=== PATIENT | female | born 1955 | race Caucasian/White ===

== ENCOUNTER 2023-11-14 11:06 | Inpatient (IN) | payer SELFPAY ==
[2023-11-14 12:39] LABS: INR 1.17 (0.83-1.09); PROTHROMBIN TIME (PATIENT) 13.5 SEC (9.7-13.0)
[2023-11-14 12:42] LABS: ACTIVATED PTT 28.6 SECONDS (25.2-36.5)
[2023-11-14 12:54] LABS: POTASSIUM 4.6 mmol/L (3.5-5.1)
[2023-11-14 12:55] LABS: CALCIUM 8.7 mg/dL (8.5-10.1)
[2023-11-14 12:56] LABS: ALBUMIN 3.3 g/dl (3.4-5.0)
[2023-11-14 12:58] LABS: BLOOD UREA NITROGEN 58.9 mg/dL (7-18)
[2023-11-14 12:59] LABS: CREATININE 2.4 mg/dL (0.55-1.3)
[2023-11-14 13:01] LABS: TOT PROT 6.6 g/dl (6.4-8.2)
[2023-11-14 13:05] LABS: BASO % 0.3 % (0-2.0); EOS % 1.3 % (0-4.5); HEMATOCRIT 34.9 % (32.4-45.2); HEMOGLOBIN 12.4 GM/dL (10.7-15.3); LYMPH % 17.8 % (8-40); MCH 31.7 pg (25.7-33.7); MCHC 35.7 g/dl (32.0-36.0); MEAN CELL VOLUME 88.9 fl (80-96); MEAN PLT VOLUME 9.2 fl (7.5-11.1); MONO % 7.7 % (3.8-10.2); NEUT % 72.9 % (42.8-82.8); PLATELET COUNT 306 10^3/uL (134-434); RBC 3.92 M/mm3 (3.60-5.2); RDW 13.4 % (11.6-15.6); WHITE BLOOD COUNT 11.9 K/mm3 (4.0-10.0)
[2023-11-14] MEDS: LACTATED RINGERS SOLUTION 1000 ML INFUS.BAG IV ONE ×2 (13:05→14:30)
[2023-11-14] MEDS ORDERED: ACETAMINOPHEN INJECTION 100 ML IVPB ONE (13:14)
[2023-11-14] MEDS: ACETAMINOPHEN 1000 MG/100 ML BAG IVPB ONE (13:20)
[2023-11-14] MEDS ORDERED: morphine SULFATE 4 MG/ML VIAL ONE (15:10)
[2023-11-14 15:20] LABS: VENOUS BASE EXCESS 0.8 mmol/L (-2-2); VENOUS O2 SATURATION 34.9 % (70-80); VENOUS PCO2 43.6 mmHg (38-52); VENOUS PH 7.393 (7.310-7.410)
[2023-11-14] MEDS: morphine CARPU-JECT 4 MG/1 ML DISP.SYRIN IVPUSH ONE (15:20)
[2023-11-14 15:57] LABS: URINE APPEARANCE CLEAR; URINE BILIRUBIN NEGATIVE (NEGATIVE); URINE COLOR YELLOW; URINE GLUCOSE (UA) 3+ (NEGATIVE); URINE KETONE NEGATIVE (NEGATIVE); URINE LEUK ESTERASE NEGATIVE (NEGATIVE); URINE NITRITE NEGATIVE (NEGATIVE); URINE PROTEIN NEGATIVE (NEGATIVE); URINE UROBILINOGEN 0.2 mg/dL (0.2-1.0)
[2023-11-14] MEDS ORDERED: INSULIN (NOVOLOG) ASPART 100 UNITS/ML 10ML VIAL ONE (17:18)
[2023-11-14] MEDS: INSULIN ASPART SLIDING SCALE (NOVOLOG) 1 VIAL SQ SCH (17:19)
[2023-11-14] MEDS: INSULIN (LEVEMIR) 100 UNITS/ML UNITS SQ SCH (17:19)
[2023-11-14 17:38] VITALS: BMI 28.4
[2023-11-14] MEDS: ACETAMINOPHEN 500 MG TABLET (FP) PO PRN (22:07)
[2023-11-14] MEDS: HEPARIN NA (PORCINE) 5,000 UNITS/ML 1ML VIAL SQ SCH (22:08)
[2023-11-14] MEDS: ATORVASTATIN CA 40 MG TABLET (FP) PO SCH (22:08)
[2023-11-14] MEDS: LACTATED RINGERS SOLUTION 1,000 ML/1,000 ML INFUS.BAG IV SCH (22:09)
[2023-11-15] MEDS: ACETAMINOPHEN 1000 MG/100 ML BAG IVPB ONE (00:38)
[2023-11-15] MEDS: HYDROmorphone HCL 2 MG TABLET PO ONE (03:22)
[2023-11-15 07:27] LABS: BASO % 0.3 % (0-2.0); EOS % 2.6 % (0-4.5); HEMATOCRIT 34.5 % (32.4-45.2); LYMPH % 29.4 % (8-40); MCH 31.2 pg (25.7-33.7); MCHC 34.8 g/dl (32.0-36.0); MEAN CELL VOLUME 89.7 fl (80-96); MONO % 5.6 % (3.8-10.2); NEUT % 62.1 % (42.8-82.8); PLATELET COUNT 287 10^3/uL (134-434); RBC 3.84 M/mm3 (3.60-5.2); RDW 13.1 % (11.6-15.6)
[2023-11-15 07:43] LABS: POTASSIUM 4.2 mmol/L (3.5-5.1)
[2023-11-15 07:45] LABS: CALCIUM 8.6 mg/dL (8.5-10.1)
[2023-11-15 07:49] LABS: CREATININE 1.5 mg/dL (0.55-1.3)
[2023-11-15 07:58] LABS: BLOOD UREA NITROGEN 32.2 mg/dL (7-18)
[2023-11-15] MEDS: traMADol HCL 50 MG TABLET PO ONE (08:06)
[2023-11-15] MEDS: ASPIRIN COATED 81 MG TABLET.EC PO SCH (09:08)
[2023-11-15] MEDS: amLODIPine BESYLATE 5 MG TABLET (FP) PO SCH (09:08)
[2023-11-15] MEDS: PNEUMOC 20-VAL CONJ-DIP CRM/PF 0.5 ML SYRINGE IM ONE (10:10)
[2023-11-15] MEDS: FLU VACCINE (FLULAVAL) PF 60 MCG/0.5 ML SYRINGE 2023-2024 IM ONE (10:11)
[2023-11-15] MEDS: GABAPENTIN 300 MG CAPSULE PO ONE (12:15)
[2023-11-15] MEDS: ACETAMINOPHEN 1000 MG/100 ML BAG IVPB SCH (12:15)
[2023-11-15] MEDS: ACETAMINOPHEN 500 MG TABLET (FP) PO SCH (18:40)
[2023-11-16 07:03] LABS: HEMATOCRIT 33.9 % (32.4-45.2); MCH 31.8 pg (25.7-33.7); MCHC 35.5 g/dl (32.0-36.0); MEAN CELL VOLUME 89.4 fl (80-96); MEAN PLT VOLUME 9.2 fl (7.5-11.1); PLATELET COUNT 296 10^3/uL (134-434); RBC 3.78 M/mm3 (3.60-5.2); WHITE BLOOD COUNT 9.6 K/mm3 (4.0-10.0)
[2023-11-16 07:15] LABS: POTASSIUM 4.2 mmol/L (3.5-5.1)
[2023-11-16 07:24] LABS: ALBUMIN 2.9 g/dl (3.4-5.0); CALCIUM 9.1 mg/dL (8.5-10.1)
[2023-11-16 07:25] LABS: BLOOD UREA NITROGEN 22.4 mg/dL (7-18)
[2023-11-16 07:27] LABS: CREATININE 1.3 mg/dL (0.55-1.3)
[2023-11-16 07:29] LABS: BILIRUBIN,TOTAL 1.2 mg/dL (0.2-1); TOT PROT 5.8 g/dl (6.4-8.2)
[2023-11-16] MEDS: GABAPENTIN 300 MG CAPSULE PO SCH (11:35)
[2023-11-16] MEDS: MAGNESIUM HYDROX 2400MG/30ML ORAL SUSPENSION 30 ML CUP PO ONE (11:57)
[2023-11-16] MEDS: GLYCERIN 1 RECTAL SUPPOSITORY, ADULT RC ONE (15:34)
[2023-11-16] MEDS ORDERED: INSULIN (NOVOLOG) ASPART 100 UNITS/ML 10ML VIAL ONE (21:07)
[2023-11-16] MEDS: INSULIN (LEVEMIR) 100 UNITS/ML UNITS SQ SCH (22:04)
[2023-11-17 06:32] LABS: HEMATOCRIT 35.9 % (32.4-45.2); HEMOGLOBIN 12.4 GM/dL (10.7-15.3); MCH 31.1 pg (25.7-33.7); MCHC 34.6 g/dl (32.0-36.0); MEAN PLT VOLUME 8.8 fl (7.5-11.1); PLATELET COUNT 297 10^3/uL (134-434); RBC 3.98 M/mm3 (3.60-5.2); RDW 13.1 % (11.6-15.6); WHITE BLOOD COUNT 11.1 K/mm3 (4.0-10.0)
[2023-11-17 07:07] LABS: POTASSIUM 4.3 mmol/L (3.5-5.1)
[2023-11-17 07:14] LABS: ALBUMIN 2.9 g/dl (3.4-5.0); CALCIUM 9.1 mg/dL (8.5-10.1)
[2023-11-17 07:15] LABS: BLOOD UREA NITROGEN 23.1 mg/dL (7-18)
[2023-11-17 07:18] LABS: CREATININE 1.3 mg/dL (0.55-1.3)
[2023-11-17 07:19] LABS: BILIRUBIN,TOTAL 0.6 mg/dL (0.2-1)
[2023-11-17] MEDS: CELECOXIB 200 MG CAPSULE PO ONE (12:25)
[2023-11-18] MEDS: GABAPENTIN 300 MG CAPSULE PO ONE (00:50)
[2023-11-18] MEDS: ACETAMINOPHEN 325 MG TABLET (FP) PO ONE (02:04)
[2023-11-18] MEDS: CELECOXIB 200 MG CAPSULE PO ONE (10:46)
[2023-11-18 16:46] VITALS: BP 118/54; PULSE 77; RESP 19; TEMP 97.5
== END 2023-11-18 14:16 | disposition home or self-care (01) | DRG 347 ==
LOC: JER 11:06 → OBSVTOIN 14:04 → JERBED 14:04 → J4W 17:13
PROVIDERS: ADMIT Internal Medicine; ATTEND Internal Medicine
DX: M54.16 Radiculopathy, lumbar region (principal); I12.9 Hypertensive chronic kidney disease with stage 1 through stage 4 chronic kidney disease, or unspecified chronic kidney disease; E11.22 Type 2 diabetes mellitus with diabetic chronic kidney disease; N18.9 Chronic kidney disease, unspecified; E11.65 Type 2 diabetes mellitus with hyperglycemia; R26.2 Difficulty in walking, not elsewhere classified; R29.818 Other symptoms and signs involving the nervous system
CPT/HCPCS: 0241U-QW; 36415; 70450-TC; 70496-TC; 70498-TC; 70551-TC; 71045-TC-FY; 72131-TC; 72170-TC-FY; 73521-TC-FY; 76775-TC; 80048; 80053; 80061; 81003; 82550; 82553; 82803; 82962; 83036; 84484; 85025; 85027; 85610; 85730; 86850; 86900; 86901; 90677; 90686; 93005; 93010; 93306-TC; 93880-TC; 97116-GP; 97162-GP; 99285-25; G0008; J0131; J1644

== ENCOUNTER 2024-01-19 08:48 | Observation (INO) | payer OTHER ==
[2024-01-19 12:02] LABS: PH,URINE 5.5 (5.0-8.0); URINE APPEARANCE CLEAR; URINE BILIRUBIN NEGATIVE (NEGATIVE); URINE COLOR YELLOW; URINE GLUCOSE (UA) 3+ (NEGATIVE); URINE KETONE NEGATIVE (NEGATIVE); URINE LEUK ESTERASE NEGATIVE (NEGATIVE); URINE NITRITE NEGATIVE (NEGATIVE); URINE PROTEIN NEGATIVE (NEGATIVE); URINE UROBILINOGEN 0.2 mg/dL (0.2-1.0); VENOUS BASE EXCESS -2.7 mmol/L (-2-2); VENOUS O2 SATURATION 58.2 % (70-80); VENOUS PCO2 38.7 mmHg (38-52); VENOUS PH 7.374 (7.310-7.410)
[2024-01-19 12:03] LABS: BASO % 0.2 % (0-2.0); EOS % 0.3 % (0-4.5); HEMATOCRIT 38.7 % (32.4-45.2); HEMOGLOBIN 12.9 GM/dL (10.7-15.3); LYMPH % 14.9 % (8-40); MCH 30.6 pg (25.7-33.7); MCHC 33.4 g/dl (32.0-36.0); MEAN CELL VOLUME 91.5 fl (80-96); MEAN PLT VOLUME 8.4 fl (7.5-11.1); NEUT % 80.6 % (42.8-82.8); PLATELET COUNT 381 10^3/uL (134-434); RBC 4.23 M/mm3 (3.60-5.2); RDW 13.2 % (11.6-15.6)
[2024-01-19 12:19] LABS: PROTHROMBIN TIME (PATIENT) 11.6 SEC (9.7-13.0)
[2024-01-19 13:02] LABS: POTASSIUM 5.6 mmol/L (3.5-5.1)
[2024-01-19 13:04] LABS: CALCIUM 9.5 mg/dL (8.5-10.1)
[2024-01-19 13:05] LABS: ALBUMIN 3.4 g/dl (3.4-5.0); BLOOD UREA NITROGEN 33.6 mg/dL (7-18)
[2024-01-19 13:09] LABS: TOT PROT 6.8 g/dl (6.4-8.2)
[2024-01-19 13:10] LABS: BILIRUBIN,TOTAL 0.5 mg/dL (0.2-1)
[2024-01-19 13:14] LABS: CREATININE 1.4 mg/dL (0.55-1.3)
[2024-01-19] MEDS ORDERED: SODIUM ZIRCONIUM CYCLOSILICATE (LOKELMA) 10 GM PACKET ONE (14:17)
[2024-01-19] MEDS: SODIUM CHLORIDE 500 ML IV STA (14:29)
[2024-01-19] MEDS: SODIUM ZIRCONIUM CYCLOSILICATE (LOKELMA) 5 GM PACKET PO ONE (14:34)
[2024-01-19] MEDS: amLODIPine BESYLATE 10 MG TABLET (FP) PO SCH (20:24)
[2024-01-19] MEDS ORDERED: INSULIN (NOVOLOG) ASPART 100 UNITS/ML 10ML VIAL ONE (21:17)
[2024-01-19] MEDS: INSULIN ASPART SLIDING SCALE (NOVOLOG) 1 VIAL SQ SCH (21:39)
[2024-01-19] MEDS: ATORVASTATIN CA 40 MG TABLET (FP) PO SCH (21:39)
[2024-01-19] MEDS: INSULIN (LEVEMIR) 100 UNITS/ML UNITS SQ SCH (21:40)
[2024-01-19] MEDS: HEPARIN NA (PORCINE) 5,000 UNITS/ML 1ML VIAL SQ SCH (21:40)
[2024-01-20] MEDS: DEXTROSE 50%-WATER 25 GM/50 ML DISP.SYRIN IVPUSH ONE (06:10)
[2024-01-20 06:21] VITALS: BMI 25.8
[2024-01-20 10:01] LABS: BLOOD UREA NITROGEN 27.8 mg/dL (7-18); CALCIUM 8.9 mg/dL (8.5-10.1)
[2024-01-20 10:03] LABS: CREATININE 1.3 mg/dL (0.55-1.3)
[2024-01-20] MEDS: ASPIRIN COATED 81 MG TABLET.EC PO SCH (10:50)
[2024-01-20] MEDS: CHLORTHALIDONE 25 MG TABLET PO SCH (10:54)
[2024-01-20] MEDS ORDERED: SODIUM ZIRCONIUM CYCLOSILICATE (LOKELMA) 5 GM PACKET PO ONE (14:03)
[2024-01-20] MEDS ORDERED: DEXTROSE 50%-WATER 25 GM/50 ML DISP.SYRIN IVPUSH PRN (19:54)
[2024-01-20] MEDS ORDERED: INSULIN (NOVOLOG) ASPART 100 UNITS/ML 10ML VIAL ONE (21:45)
[2024-01-21] MEDS: INSULIN (LEVEMIR) 100 UNITS/ML UNITS SQ SCH (06:27)
[2024-01-21 08:18] LABS: HEMATOCRIT 33.4 % (32.4-45.2); HEMOGLOBIN 11.6 GM/dL (10.7-15.3); MCH 31.3 pg (25.7-33.7); MCHC 34.7 g/dl (32.0-36.0); MEAN CELL VOLUME 90.4 fl (80-96); MEAN PLT VOLUME 8.6 fl (7.5-11.1); PLATELET COUNT 344 10^3/uL (134-434); RDW 13.3 % (11.6-15.6); WHITE BLOOD COUNT 10.7 K/mm3 (4.0-10.0)
[2024-01-21 08:27] LABS: POTASSIUM 4.9 mmol/L (3.5-5.1)
[2024-01-21 08:36] LABS: CALCIUM 9.3 mg/dL (8.5-10.1)
[2024-01-21 08:40] LABS: CREATININE 1.4 mg/dL (0.55-1.3)
[2024-01-21 08:41] LABS: BILIRUBIN,TOTAL 0.5 mg/dL (0.2-1)
[2024-01-21] MEDS: VANCOMYCIN/WATER FOR INJ (PEG) 1,000 MG/200 ML BAG IVPB ONE (16:11)
[2024-01-22] MEDS ORDERED: INSULIN (NOVOLOG) ASPART 100 UNITS/ML 10ML VIAL ONE (21:18)
[2024-01-24 08:36] LABS: BASO % 0.5 % (0-2.0); EOS % 3.7 % (0-4.5); HEMATOCRIT 37.9 % (32.4-45.2); HEMOGLOBIN 13.2 GM/dL (10.7-15.3); LYMPH % 34.6 % (8-40); MCH 31.4 pg (25.7-33.7); MCHC 34.8 g/dl (32.0-36.0); MEAN CELL VOLUME 90.2 fl (80-96); MEAN PLT VOLUME 8.5 fl (7.5-11.1); MONO % 7.4 % (3.8-10.2); NEUT % 53.8 % (42.8-82.8); PLATELET COUNT 429 10^3/uL (134-434); RDW 13.4 % (11.6-15.6); WHITE BLOOD COUNT 9.2 K/mm3 (4.0-10.0)
[2024-01-24 08:53] LABS: POTASSIUM 4.9 mmol/L (3.5-5.1)
[2024-01-24 08:55] LABS: ALBUMIN 3.5 g/dl (3.4-5.0); BLOOD UREA NITROGEN 44.7 mg/dL (7-18); CALCIUM 9.8 mg/dL (8.5-10.1)
[2024-01-24 08:58] LABS: CREATININE 1.5 mg/dL (0.55-1.3)
[2024-01-24 09:00] LABS: BILIRUBIN,TOTAL 0.5 mg/dL (0.2-1); TOT PROT 7.2 g/dl (6.4-8.2)
[2024-01-24] MEDS ORDERED: INSULIN (NOVOLOG) ASPART 100 UNITS/ML 10ML VIAL ONE (22:10)
[2024-01-25 11:45] VITALS: PULSE 84; RESP 20
[2024-01-25 14:24] VITALS: BP 138/58; TEMP 98.4
== END 2024-01-25 16:21 | disposition home or self-care (01) ==
LOC: JER 08:48 → JERBED 16:52 → J7W 18:53
PROVIDERS: ADMIT Internal Medicine; ATTEND Nurse Practitioner
PROC: 3E023GC Introduction of Other Therapeutic Substance into Muscle, Percutaneous Approach (ICD-10-PCS; principal; 2024-01-19)
PROC: 3E013VG Introduction of Insulin into Subcutaneous Tissue, Percutaneous Approach (ICD-10-PCS; 2024-01-19)
PROC: 3E0337Z Introduction of Electrolytic and Water Balance Substance into Peripheral Vein, Percutaneous Approach (ICD-10-PCS; 2024-01-19)
PROC: 3E03329 Introduction of Other Anti-infective into Peripheral Vein, Percutaneous Approach (ICD-10-PCS; 2024-01-19)
DX: E11.649 Type 2 diabetes mellitus with hypoglycemia without coma (principal); E86.0 Dehydration; E87.5 Hyperkalemia; H53.2 Diplopia; R29.818 Other symptoms and signs involving the nervous system; I10 Essential (primary) hypertension; Z86.73 Personal history of transient ischemic attack (TIA), and cerebral infarction without residual deficits
CPT/HCPCS: 0241U-QW; 36415; 70450-TC; 70551-TC; 71045-TC-FY; 80048; 80053; 81003; 82550; 82803; 82962; 83605; 84484; 85025; 85027; 85610; 85730; 86850; 86900; 86901; 87040; 87086; 93005; 93010; 99285-25; G0378; J1644

== ENCOUNTER 2024-07-24 03:13 | Inpatient (IN) | payer SELFPAY ==
[2024-07-24 03:20] VITALS: BMI 28.5
[2024-07-24] MEDS ORDERED: ACETAMINOPHEN INJECTION 100 ML ONE (03:49)
[2024-07-24] MEDS: ACETAMINOPHEN 1000 MG/100 ML BAG IVPB ONE (04:05)
[2024-07-24 04:27] LABS: POTASSIUM 4.7 mmol/L (3.5-5.1)
[2024-07-24] MEDS ORDERED: ASPIRIN 81 MG CHEWABLE TABLETS ONE (04:27)
[2024-07-24 04:29] LABS: ALBUMIN 3.8 g/dl (3.4-5.0); BLOOD UREA NITROGEN 21.3 mg/dL (7-18); CALCIUM 8.5 mg/dL (8.5-10.1)
[2024-07-24 04:32] LABS: CREATININE 1.4 mg/dL (0.55-1.3)
[2024-07-24] MEDS: ASPIRIN 81 MG CHEWABLE TABLETS PO ONE (04:32)
[2024-07-24 04:34] LABS: BILIRUBIN,TOTAL 1.1 mg/dL (0.2-1)
[2024-07-24 04:52] LABS: INR 0.96 (0.83-1.09); PROTHROMBIN TIME (PATIENT) 11.1 SEC (9.7-13.0)
[2024-07-24 04:55] LABS: ACTIVATED PTT 35.5 SECONDS (25.2-36.5)
[2024-07-24 05:40] LABS: BASO % 0.5 % (0-2.0); EOS % 3.4 % (0-4.5); HEMATOCRIT 37.6 % (32.4-45.2); HEMOGLOBIN 12.7 GM/dL (10.7-15.3); LYMPH % 30.3 % (8-40); MCH 30.8 pg (25.7-33.7); MCHC 33.9 g/dl (32.0-36.0); MEAN CELL VOLUME 90.7 fl (80-96); MONO % 7.3 % (3.8-10.2); NEUT % 58.5 % (42.8-82.8); PLATELET COUNT 292 10^3/uL (134-434); RBC 4.14 M/mm3 (3.60-5.2); RDW 14.8 % (11.6-15.6); WHITE BLOOD COUNT 10.5 K/mm3 (4.0-10.0)
[2024-07-24] MEDS ORDERED: FUROSEMIDE 40 MG/4 ML INJECTABLE VIAL ONE (05:48)
[2024-07-24] MEDS: FUROSEMIDE 40 MG/4 ML INJECTABLE VIAL IVPUSH ONE (05:56)
[2024-07-24] MEDS ORDERED: HEPARIN NA (PORCINE) 5,000 UNITS/ML 1ML VIAL ONE (06:55)
[2024-07-24] MEDS ORDERED: INSULIN ASPART SLIDING SCALE (NOVOLOG) 1 VIAL SQ SCH (07:00)
[2024-07-24] MEDS: HEPARIN NA (PORCINE) 5,000 UNITS/ML 1ML VIAL SQ SCH (07:01)
[2024-07-24] MEDS: INSULIN ASPART SLIDING SCALE (NOVOLOG) 1 VIAL SQ SCH (07:36)
[2024-07-24] MEDS: FUROSEMIDE 40 MG/4 ML INJECTABLE VIAL IVPUSH SCH (09:39)
[2024-07-24] MEDS: VALSARTAN 160 MG TABLET PO SCH (09:39)
[2024-07-24] MEDS: ASPIRIN COATED 81 MG TABLET.EC PO SCH (09:40)
[2024-07-24] MEDS: CHLORTHALIDONE 25 MG TABLET PO SCH (09:40)
[2024-07-24] MEDS: CLOPIDOGREL BISULFATE 75 MG TABLET (FP) PO SCH (09:40)
[2024-07-24] MEDS: INSULIN (LEVEMIR) 100 UNITS/ML UNITS SQ SCH (09:42)
[2024-07-24] MEDS ORDERED: INSULIN (LEVEMIR) 100 UNITS/ML UNITS SQ SCH (10:00)
[2024-07-24 14:16] LABS: HIV INTERPRETATION NEGATIVE (NEGATIVE)
[2024-07-24 20:36] VITALS: RESP 18; TEMP 98.1
[2024-07-25 06:18] VITALS: BP 145/65; PULSE 68
[2024-07-25 07:57] LABS: BASO % 0.7 % (0-2.0); EOS % 2.9 % (0-4.5); HEMATOCRIT 35.6 % (32.4-45.2); HEMOGLOBIN 12.2 GM/dL (10.7-15.3); MCH 30.7 pg (25.7-33.7); MCHC 34.4 g/dl (32.0-36.0); MEAN CELL VOLUME 89.4 fl (80-96); MEAN PLT VOLUME 8.4 fl (7.5-11.1); MONO % 5.8 % (3.8-10.2); NEUT % 57.6 % (42.8-82.8); PLATELET COUNT 298 10^3/uL (134-434); RBC 3.98 M/mm3 (3.60-5.2); RDW 14.6 % (11.6-15.6); WHITE BLOOD COUNT 9.3 K/mm3 (4.0-10.0)
[2024-07-25 08:04] LABS: POTASSIUM 4.3 mmol/L (3.5-5.1)
[2024-07-25 08:07] LABS: ALBUMIN 3.6 g/dl (3.4-5.0)
[2024-07-25 08:08] LABS: BLOOD UREA NITROGEN 27.7 mg/dL (7-18); CALCIUM 8.9 mg/dL (8.5-10.1)
[2024-07-25 08:10] LABS: BILIRUBIN,DIRECT 0.3 mg/dL (0.0-0.2)
[2024-07-25 08:11] LABS: CREATININE 1.6 mg/dL (0.55-1.3)
[2024-07-25 08:12] LABS: BILIRUBIN,TOTAL 1.1 mg/dL (0.2-1); TOT PROT 6.5 g/dl (6.4-8.2)
[2024-07-25] MEDS: amLODIPine BESYLATE 5 MG TABLET (FP) PO SCH (11:47)
[2024-07-25] MEDS: LABETALOL HCL 200 MG TABLET (FP) PO SCH (11:47)
[2024-07-25] MEDS ORDERED: ATORVASTATIN CA 40 MG TABLET (FP) PO SCH (22:00)
[2024-07-26] MEDS ORDERED: FUROSEMIDE 40 MG/4 ML INJECTABLE VIAL IVPUSH SCH (10:00)
== END 2024-07-25 15:52 | disposition home or self-care (01) | DRG 194 ==
LOC: JER 03:13 → JERBED 06:02 → J4W 08:15
PROVIDERS: ADMIT Internal Medicine; ATTEND Internal Medicine
DX: I13.0 Hypertensive heart and chronic kidney disease with heart failure and stage 1 through stage 4 chronic kidney disease, or unspecified chronic kidney disease (principal); I50.33 Acute on chronic diastolic (congestive) heart failure; E11.42 Type 2 diabetes mellitus with diabetic polyneuropathy; E11.22 Type 2 diabetes mellitus with diabetic chronic kidney disease; I16.0 Hypertensive urgency; N18.2 Chronic kidney disease, stage 2 (mild); R74.01 Elevation of levels of liver transaminase levels; E87.70 Fluid overload, unspecified; E78.5 Hyperlipidemia, unspecified
CPT/HCPCS: 0241U-QW; 36415; 71045-TC-FY; 76705-TC; 80048; 80053; 80076; 82962; 83036; 83735; 83880; 84484; 85025; 85610; 85730; 86704; 86803; 87340; 87389; 87517; 93005; 93010; 93306-TC; 93970-TC; 97116-GP; 97161-GP; 99285-25; J0131; J1644